=== PATIENT | male | born 1945 | race Asian ===

== ENCOUNTER 2016-03-12 11:25 | Day surgery (SDC) | payer OTHER, MEDICARE ==
[2016-03-10 11:32] VITALS: BMI 27.9
[2016-03-12] MEDS ORDERED: CLINDAMYCIN PHOSPHATE 600 MG/4 ML VIAL ONE (11:57)
[2016-03-12] MEDS ORDERED: LIDOCAINE 1%/EPI 1:100000 (50 ML MULTI DOSE VIAL) ONE (12:54)
--- NOTE | 2016-03-12 13:11 | HP ---
Admitting History and Physical - Admission History of Present Illness: 71 year old male with recent infected neck cyst. Infection healed but cyst remains. No pain. No recent drainage. Limitations to Obtaining History: No Limitations - Past Medical History Cardiovascular: Yes: HTN - Smoking History Smoking history: Never smoked Aproximately how many cigarettes per day: 0 - Alcohol/Substance Use Hx Alcohol Use: Yes (OCAS) Home Medications - Allergies Allergies/Adverse Reactions: Allergies Allergy/AdvReac Type Severity Reaction Status Date / Time apple Allergy Verified 03/12/16 11:50 walnut Allergy Verified 03/12/16 11:50 KIWI Allergy Uncoded 03/10/16 11:32 PEACHES Allergy Uncoded 03/10/16 11:33 - Home Medications Home Medications: Ambulatory Orders Ascorbate Calcium [Vitamin C] 500 mg PO DAILY 03/07/16 Aspirin [ASA -] 81 mg PO DAILY 03/07/16 Losartan Potassium 50 mg PO DAILY 03/07/16 Mv-Mn/Iron/FA/Herbal Cmplx#[id number] [Vitamin D3 Complete Caplet] 1 each PO DAILY 08/16 Vitamin B-12 1,000 mg PO DAILY 03/07/16 Vitamin E 1,000 unit PO DAILY 03/07/16 Dutasteride [Avodart] 0.5 mg PO DAILY 03/10/16 Family Disease History - Family Disease History Family History: Unremarkable Physical Examination Vital Signs: Vital Signs Temperature 97.8 F 03/12/16 11:52 Pulse Rate 78 03/12/16 11:52 Respiratory Rate 16 03/12/16 11:52 Blood Pressure 148/97 03/12/16 11:52 O2 Sat by Pulse Oximetry (%) 98 03/12/16 11:52 Constitutional: Yes: No Distress Eyes: Yes: EOM Intact HENT: Yes: WNL Neck: Yes: Supple, Other (Posterior midline cyst 3 cm) Cardiovascular: Yes: Regular Rate and Rhythm Respiratory: Yes: Regular Gastrointestinal: Yes: Soft Problem List - Problems (1) Cyst of neck Assessment/Plan: Plan excision of neck cyst Code(s): L72.3 - SEBACEOUS CYST
[2016-03-12] MEDS ORDERED: CLINDAMYCIN 600 MG PREMIX BAG IVPB ONE (13:20)
[2016-03-12] MEDS ORDERED: LIDOCAINE HCL 1%, 10 MG/ML (20ML VIAL) IJ ONE (13:39)
[2016-03-12] MEDS ORDERED: LIDOCAINE 1%/EPI 1:100000 (50 ML MULTI DOSE VIAL) PNB ONE (13:54)
[2016-03-12] MEDS ORDERED: ONDANSETRON 4 MG/2 ML VIAL IVPUSH PRN (14:02)
[2016-03-12] MEDS ORDERED: PROMETHAZINE HCL 25 MG/1 ML VIAL IVPUSH PRN (14:02)
[2016-03-12] MEDS ORDERED: IBUPROFEN 600 MG TABLET (FP) PO PRN (14:04)
[2016-03-12] MEDS ORDERED: oxyCODONE HCL 5 MG TABLET PO PRN (14:04)
--- NOTE | 2016-03-12 14:04 | OP ---
Operative Note - Note: Operative Date: 03/12/16 Pre-Operative Diagnosis: Neck cyst Operation: Excision neck cyst 4 cm Findings: Scarred cystic mass in posterior midline neck. Size of excision wound 4 cm. Post-Operative Diagnosis: Same as Pre-op Surgeon: Shiv Devi Anesthesiologist/CLOTH WASHER: Reginaldo Lai Anesthesia: Fractional Specimens Removed: Cyst and skin Estimated Blood Loss (mls): 20
[2016-03-12] MEDS ORDERED: LACTATED RINGERS SOLUTION 1,000 ML IV SCH (14:15)
[2016-03-12 14:52] VITALS: TEMP 98.1
[2016-03-12 16:23] VITALS: BP 132/84; PULSE 70
--- NOTE | 2016-03-13 01:05 | OP ---
DATE OF OPERATION: 03/12/2016 SURGEON: Shiv Reardon MD PROCEDURE: Excision of posterior neck cyst. PREOPERATIVE DIAGNOSIS: Cyst of neck. POSTOPERATIVE DIAGNOSIS: Cyst of neck. ANESTHESIA: Fractional. ANESTHESIOLOGIST: Reginaldo Lai MD OPERATIVE FINDINGS: An approximately 3 cm diameter cyst was present in the subcutaneous tissues of the posterior neck. There was significant induration and scar tissue around the cyst, which had recently been infected. OPERATIVE PROCEDURE: Following routine patient identification with site and side verification, intravenous sedation was established. The patient was placed in the lateral decubitus position. The skin of the posterior neck was prepped with ChloraPrep. Then 1% Xylocaine with epinephrine was infiltrated around and beneath the cyst. An elliptical incision with approximately 4 cm length was made around the cyst. The wound was deepened into the subcutaneous tissues using cautery. The wound was then deepened around the base of the cyst. The entire cyst with the overlying skin was removed and sent to pathology. The wound was irrigated with saline and closed with interrupted suture of 3-0 Vicryl in the subcutaneous tissues and running suture of 3-0 nylon on the skin. Sterile dressing was applied and the patient was taken to the recovery room in stable condition. SHIV REARDON M.D. LANE/[id number]
--- NOTE | 2016-03-14 14:38 | PATH ---
Surgical Pathology Report Patient Name: GLADYS ALCARAZ [facility]. Rec. #: [id number] /Age/Gender: 1945 (Age: 71) / M Account: [id number] Location: [facility] SURGICAL Taken: 03/12/2016 Received: 03/13/2016 Reported: 03/14/2016 Physicians: Shiv Devi M.D. Specimen(s) Received CYST POSTERIOR NECK Clinical History Posterior neck cyst Final Diagnosis SKIN AND SOFT TISSUE, POSTERIOR NECK, CYST, EXCISION: INFLAMED EPIDERMAL INCLUSION CYST. Electronically Signed Sunny Lombardo M.D. Gross Description Received in formalin, labeled "posterior neck cyst" is a 3.6 x 1.5 cm herrera, elliptical, unoriented portion of skin excised to a depth of 2.0 cm. The epidermal surface is unremarkable. Sectioning reveals an intact cyst. A chemical sales representative section is submitted in one cassette. /03/13/201603/13/2016
== END 2016-03-12 16:23 | disposition home or self-care (01) ==
LOC: JASU-SURG 11:25
PROVIDERS: ATTEND Surgery
PROC: 0HQ4XZZ Repair Neck Skin, External Approach (ICD-10-PCS; 2016-03-12)
PROC: 0HB4XZZ Excision of Neck Skin, External Approach (ICD-10-PCS; principal; 2016-03-12 13:00)
DX: L72.0 Epidermal cyst (principal)
CPT/HCPCS: 88304-TC; 94760

== ENCOUNTER 2023-03-23 08:44 | Emergency (ER) | payer OTHER, MEDICARE ==
[2023-03-23 08:52] VITALS: BP 145/81; PULSE 75; RESP 18; TEMP 97.8; BMI 28.3
[2023-03-23] MEDS ORDERED: DIPHTH,PERTUSS(ACELL),TET 0.5 ML DISP.SYRIN IM ONE ×2 (09:39→10:26)
[2023-03-23] MEDS ORDERED: ACETAMINOPHEN 500 MG TABLET (FP) PO ONE (09:39)
[2023-03-23] MEDS ORDERED: ACETAMINOPHEN 325 MG TABLET (FP) ONE (10:26)
[2023-03-23] MEDS ORDERED: LIDOCAINE 5% TOPICAL PATCH TP ONE (10:42)
[2023-03-23] MEDS ORDERED: LIDOCAINE 4% PATCH TP ONE ×2 (11:44→11:45)
[2023-03-23] MEDS ORDERED: LIDOCAINE PATCH REMOVAL MC ONE ×2 (22:00)
== END 2023-03-23 12:32 | disposition home or self-care (01) ==
LOC: JER 08:44
PROC: 0HQ0XZZ Repair Scalp Skin, External Approach (ICD-10-PCS; principal; 2023-03-23)
PROC: 3E0234Z Introduction of Serum, Toxoid and Vaccine into Muscle, Percutaneous Approach (ICD-10-PCS; 2023-03-23)
DX: S01.01XA Laceration without foreign body of scalp, initial encounter (principal); R42 Dizziness and giddiness; W01.198A Fall on same level from slipping, tripping and stumbling with subsequent striking against other object, initial encounter
CPT/HCPCS: 12002-25; 70450-TC; 71045-TC-FY; 72125-TC; 90471; 90715; 93005; 93010; 99285-25